=== PATIENT | female | born 1945 ===

== ENCOUNTER 2019-05-25 05:30 | Day surgery (SDC) | payer OTHER ==
[~2019-05-25 05:30] MED LIST: ALTACE10 MG PO; AMBIEN10 MG PO; ARICEPT5 MG PO; CYMBALTA60 MG PO; LIPITOR40 MG PO; NEURONTIN300 MG PO; SINGULAIR10 MG PO; ZYRTEC10 M3 PO
== END 2019-05-25 15:10 | disposition home or self-care (01) ==
LOC: CIR.AMB 05:30
DX: R15.9 Full incontinence of feces (principal)
CPT/HCPCS: 64581; C1778

== ENCOUNTER 2019-06-08 05:00 | Day surgery (SDC) | payer OTHER | END 2019-06-08 12:30 | disposition home or self-care (01) | LOC: CIR.AMB 05:00 | DX: R15.9 Full incontinence of feces (principal) | CPT/HCPCS: 64590; C1767 ==

== ENCOUNTER 2022-12-03 05:13 | Day surgery (SDC) | payer OTHER ==
[~2022-12-03] VITALS: Ht 160 cm; Wt 77.1 kg
[~2022-12-03 05:13] MED LIST changes: +PROZA PO; +REMERON15 M1 PO
== END 2022-12-03 12:45 | disposition home or self-care (01) ==
LOC: CIR.AMB 05:13
PROVIDERS: ATTEND Colon & Rectal Surgery
DX: R15.9 Full incontinence of feces (principal); T85.111A Breakdown (mechanical) of implanted electronic neurostimulator of peripheral nerve electrode (lead), initial encounter; T85.732A Infection and inflammatory reaction due to implanted electronic neurostimulator of peripheral nerve, electrode (lead), initial encounter; Z20.822 Contact with and (suspected) exposure to COVID-19
CPT/HCPCS: 64590; 64581; 95971; C1767; C1778